=== PATIENT | female | born 1985 | race Caucasian/White ===

== ENCOUNTER 2020-11-29 05:04 | Inpatient (IN) | payer OTHER ==
[~2020-11-29] VITALS: Ht 160 cm; Wt 68.0 kg
[2020-11-29] MEDS ORDERED: TYLENOL325 MG PO (06:37)
[2020-11-29] MEDS ORDERED: PRENATABS FA T1 EACH PO (06:37)
[2020-11-29 08:06] LABS: HEMOGLOBIN 10.1 gm/dl (12.3-15.3); RED BLOOD COUNT 3.08 M/UL (4.00-5.10); WHITE BLOOD COUNT 10.8 K/UL (4.5-11.0)
[2020-11-29] MEDS ORDERED: HEMOCYTE324 MG PO (14:31)
[2020-11-29] MEDS ORDERED: IBUPROFEN800 MG PO (14:31)
[2020-11-29] MEDS ORDERED: PERCOCET 5/325 T1 EA PO (14:31)
[2020-11-29] MEDS ORDERED: COLACE100 MG PO (14:31)
[2020-11-30 06:53] LABS: HEMOGLOBIN 8.8 gm/dl (12.3-15.3)
== END 2020-12-01 13:10 | disposition home or self-care (01) | DRG 788 ==
LOC: OB 05:04
PROVIDERS: ADMIT Obstetrics & Gynecology
PROC: 10D00Z1 Extraction of Products of Conception, Low, Open Approach (ICD-10-PCS; principal; 2020-11-29 07:30)
DX: O34.211 Maternal care for low transverse scar from previous cesarean delivery (principal); N85.8 Other specified noninflammatory disorders of uterus; O75.89 Other specified complications of labor and delivery; Z20.822 Contact with and (suspected) exposure to COVID-19; O99.334 Smoking (tobacco) complicating childbirth; G43.909 Migraine, unspecified, not intractable, without status migrainosus; F17.210 Nicotine dependence, cigarettes, uncomplicated; O99.824 Streptococcus B carrier state complicating childbirth; O99.02 Anemia complicating childbirth; D64.9 Anemia, unspecified; M41.9 Scoliosis, unspecified; Z3A.38 38 weeks gestation of pregnancy; Z37.0 Single live birth; Z28.82 Immunization not carried out because of caregiver refusal; Z88.5 Allergy status to narcotic agent; Z88.8 Allergy status to other drugs, medicaments and biological substances; Z90.49 Acquired absence of other specified parts of digestive tract; Z83.3 Family history of diabetes mellitus; Z82.49 Family history of ischemic heart disease and other diseases of the circulatory system
CPT/HCPCS: 80307; 81001; 85014; 85018; 85025; 93005; C9113; J0690; J1170; J1885; J2274; J2370; J2405; J2590; J2795; J3010; J7120; U0002